=== PATIENT | female | born 1990 | race Caucasian/White ===

== ENCOUNTER 2018-11-11 19:19 | Outpatient (CLI) | payer MEDICAID ==
[~2018-11-11] VITALS: Ht 167.6 cm; Wt 95.2 kg
[2018-11-11 19:29] VITALS: Ht 167.6 cm; Wt 95.2 kg
[2018-11-11 19:31] VITALS: BP 110/65; PULSE 83; RESP 19
[2018-11-11] MEDS ORDERED: NOVO7030 SC ×2 (20:16)
[2018-11-11] MEDS ORDERED: NOVO3I SC (20:25)
--- NOTE | 2018-11-11 21:41 | TRIAGE ---
OB Triage Datetime Report Generated by CPN: 11/11/2018 21:41 Datetime: 11/11/2018 21:29 Labor Evaluation Frequency: 0 Monitor Mode: External Pattern: Normal: <= 5 Contractions in 10 Minutes Heart Rate FHR Baseline Rate: 135 Monitor Mode: External US Variability: Moderate 6-25 bpm Accelerations: 15X15 Decelerations: None Datetime: 11/11/2018 21:00 Labor Evaluation Frequency: 0 Monitor Mode: External Pattern: Normal: <= 5 Contractions in 10 Minutes Heart Rate FHR Baseline Rate: 135 Monitor Mode: External US Variability: Moderate 6-25 bpm Accelerations: 15X15 Decelerations: None Datetime: 11/11/2018 20:00 Labor Evaluation Frequency: 0 Monitor Mode: External Pattern: Normal: <= 5 Contractions in 10 Minutes Heart Rate FHR Baseline Rate: 135 Monitor Mode: External US Variability: Moderate 6-25 bpm Accelerations: 15X15 Decelerations: None Datetime: 11/11/2018 19:50 Temperature Route: Oral Fall Risk Assessment History of Falling: (0) No Secondary Diagnosis: (0) No Ambulatory Aid: (0) Bedrest/Nurse Assist IV Therapy: (0) No Gait: (0) Normal/Bedrest/Immobile Mental Status: (0) Oriented to Own Ability Fall Score: 0 Fall Risk Score Definition: No Risk: No action required Datetime: 11/11/2018 19:41 Time of Arrival: 11/11/2018 19:04 EGA: 32.0 Arrived By: Ambulatory Arrived From: Home Chief Complaint: left foot/ankle foot swelling Movement: Present Contractions: Denies/Absent Rupture of Membranes: Denies Vaginal Bleeding: None Vaginal Discharge: Denies Recent Sexual Intercouse: Denies Abdominal Trauma: Not Applicable Patient Complaints: Dependent Edema Time Provider Notified: 11/11/2018 19:45 Provider Notified: Dacia Initial Plan: CEFM, DOPPLER STUDY OF LEFT LEG Datetime: 11/11/2018 19:33 Stage of : OB Triage Assessment Type: Triage Maternal Assessment Level of Consciousness: Fully Conscious DTR's/Clonus: DTRs 2+; No Clonus Headache: Frontal Blurred Vision: No Respiratory Effort: Unlabored; Regular Rhythm; Equal Expansion Breath Sounds, Left: Clear and Equal Breath Sounds, Right: Clear and Equal Nausea/Vomiting: Denies RUQ Epigastric Pain: Denies Lower Extremities Edema: Left Lower Extremity Degree: NON PITTING WITH SWELLING NOTED AROUND ANKLE Upper Extremities Edema: None Degree: None Facial Edema: None Bedside Blood Glucose: 103 Pain Assessment Pain Scale: 2 Pain Presence: Constant Pain Type: Ache Pain Location: Head Pain Goal: 0 Pain Relief Measures: Comfort Measures
--- NOTE | 2018-11-11 21:43 | PN ---
Triage Information Date/Time November 11, 2018 Reason for visit: Left foot swelling Weeks of Gestation 32w /Para 3/0 Diabetes: pre-gestational Diabetes management: insulin controlled Hypertention: none Additional information Pt was instructed by her clinic to come in a she reported the swelling of one foot today. There is no associated pain with it and the swelling does not continue up the leg to the calf, knee, or thigh. PMHx: type 2 DM, insulin controlled. PSHx: Ovarian cystectomy 23 cm. NKDA. Objective Vital Signs Date Temp Pulse Resp B/P (MAP) Pulse Ox O2 O2 Flow FiO2 Time Delivery Rate 11/11/18 98.3 83 19 110/65 Room Air 19:31 (80) Heart Rate: 130's Heart Rate Comments Accels to 150 BPM. No decels. Contractions: None Results/Medications Results 24 hrs Laboratory Tests Test 11/11/18 19:36 Bedside Glucose 103 Imaging Results Left leg doppler studies showed no evidence for a DVT. Disposition: Discharge Assessment/Plan A: IUP at 32w. Left foot swelling. P: As doppler studies are negative the pt is ready for d/c. She was told to wear looser socks as she has ankle high ones that are pressing into her skin, possibly adding to the swelling. F/u with her doctor as scheduled. YSABEL ADKINS MD Nov 11, 2018 21:43
== END 2018-11-11 21:35 | disposition home or self-care (01) ==
LOC: OBT 19:19 → L-D 19:20 → OBT 21:35
PROVIDERS: ATTEND Obstetrics & Gynecology
DX: O26.893 Other specified pregnancy related conditions, third trimester (principal); M79.89 Other specified soft tissue disorders; O24.414 Gestational diabetes mellitus in pregnancy, insulin controlled; Z3A.32 32 weeks gestation of pregnancy
CPT/HCPCS: 82962; 93971; Z7500; G0463

== ENCOUNTER 2018-12-03 14:59 | Outpatient (CLI) | payer MEDICAID ==
[~2018-12-03] VITALS: Ht 167.6 cm; Wt 97.4 kg
[~2018-12-03 14:59] MED LIST: NOVO3I SC; NOVO7030 SC
[2018-12-03 16:03] VITALS: Ht 167.6 cm; Wt 97.4 kg
[2018-12-03 16:04] VITALS: BP 103/55; PULSE 69; RESP 18
[2018-12-03] MEDS ORDERED: INSU100C SQ (16:17)
[2018-12-03] MEDS ORDERED: IRON1TAB78 PO (16:20)
[2018-12-03] MEDS ORDERED: FOLI-49 PO (16:20)
--- NOTE | 2018-12-03 18:04 | HP ---
Date/Time of Note Date/Time of Note DATE: 12/03/18 TIME: 17:59 OB - History Hx of Present Free Text/Dictation 28 YO with IUP at 35.1 weeks and EDC 01/06/2019 who is referred by [facility] for antepartum testing due to Type 2 DM. she reports good glycemic contol. She denies contractions, vaginal bleeding, LOF per vagina, headache, visual changes or RUQ pain. she reports good FM. Care: Good Care Ultrasounds: Normal mid trimester US Obstetrical Complications: Other (Tpe 2 DM) Medical Complications: Other (Tpe 2 DM) Past Family/Social History * Past Medical, Surgical, Family and Obstetric Histories reviewed from chart. OB Admission Exam Vital Signs Vital Signs Vital Signs Date Temp Pulse Resp B/P (MAP) Pulse Ox O2 O2 Flow FiO2 Time Delivery Rate 12/03/18 97.5 69 18 103/55 Room Air 16:04 (71) Physical Exam HEENT: WNL Heart: Rhythm Normal Lungs: Clear, Equal Abdomen: WNL Extremities: Normal Reflexes: Normal OB Assessment/Plan Other Assessment: IUP at 35.2 weeks DM Plan: Other (NST, BPP) DMITRIY ESPARZA MD Dec 03, 2018 18:04
--- NOTE | 2018-12-03 19:42 | TRIAGE ---
OB Triage Datetime Report Generated by CPN: 12/03/2018 19:42 Datetime: 12/03/2018 19:11 Stage of : OB Triage Labor Evaluation Frequency: None Monitor Mode: External Resting Tone Roland: Relaxed Heart Rate FHR Baseline Rate: 125 Monitor Mode: External US Variability: Moderate 6-25 bpm Accelerations: 15X15 Decelerations: None Category: Category I Pain Assessment Pain Scale: 0 Pain Presence: None/Denies Pain Type: N/A Pain Relief Measures: Comfort Measures Datetime: 12/03/2018 18:33 Labor Evaluation Frequency: 0 Monitor Mode: External Pattern: Normal: <= 5 Contractions in 10 Minutes Resting Tone Roland: Relaxed Heart Rate FHR Baseline Rate: 125 Monitor Mode: External US Variability: Moderate 6-25 bpm Accelerations: 10X10 Decelerations: None Category: Category I Pain Assessment Pain Scale: 0 Pain Presence: None/Denies Pain Type: N/A Pain Goal: 3 Pain Relief Measures: Comfort Measures Datetime: 12/03/2018 17:57 Stage of : OB Triage Datetime: 12/03/2018 17:22 Stage of : OB Triage Datetime: 12/03/2018 17:20 Labor Evaluation Frequency: 0 Monitor Mode: External Pattern: Normal: <= 5 Contractions in 10 Minutes Resting Tone Roland: Relaxed Heart Rate FHR Baseline Rate: 125 Monitor Mode: External US Variability: Moderate 6-25 bpm Accelerations: 10X10 Decelerations: None Category: Category I Pain Assessment Pain Scale: 0 Pain Presence: None/Denies Pain Type: N/A Pain Goal: 3 Pain Relief Measures: Comfort Measures Datetime: 12/03/2018 16:25 Labor Evaluation Frequency: 0 Monitor Mode: External Resting Tone Roland: Relaxed Heart Rate FHR Baseline Rate: 130 Monitor Mode: External US Variability: Moderate 6-25 bpm Accelerations: 15X15 Decelerations: None Category: Category I Datetime: 12/03/2018 16:23 Stage of : OB Triage Assessment Type: Triage Maternal Assessment Level of Consciousness: Keenly Alert, Responsive DTR's/Clonus: DTRs 2+; No Clonus Headache: Denies Blurred Vision: No Respiratory Effort: Unlabored; Regular Rhythm; Equal Expansion Breath Sounds, Left: Clear and Equal Breath Sounds, Right: Clear and Equal Nausea/Vomiting: Denies RUQ Epigastric Pain: Denies Lower Extremities Edema: Bilateral Lower Extremities Degree: 1+ Upper Extremities Edema: None Facial Edema: None Temperature Route: Oral Fall Risk Assessment History of Falling: (0) No Secondary Diagnosis: (0) No Ambulatory Aid: (0) Bedrest/Nurse Assist IV Therapy: (0) No Gait: (0) Normal/Bedrest/Immobile Mental Status: (0) Oriented to Own Ability Fall Score: 0 Fall Risk Score Definition: No Risk: No action required Pain Assessment Pain Scale: 0 Pain Presence: None/Denies Pain Type: N/A Pain Goal: 0 Datetime: 12/03/2018 16:22 Time of Arrival: 12/03/2018 14:50 EGA: 35.1 Arrived By: Ambulatory Arrived From: Office Chief Complaint: for NST Movement: Present Contractions: Denies/Absent Rupture of Membranes: Denies Vaginal Bleeding: None Vaginal Discharge: Denies Recent Sexual Intercouse: Denies Abdominal Trauma: Not Applicable Patient Complaints: None Time Provider Notified: 12/03/2018 17:22 Provider Notified: Yasharpour Initial Plan: monitor patient Datetime: 11/11/2018 19:50 Fall Score: 0 Fall Risk Score Definition: No Risk: No action required Datetime: 11/11/2018 19:41 EGA: 32.0
== END 2018-12-03 19:25 | disposition home or self-care (01) ==
LOC: OBT 14:59 → L-D 15:00 → OBT 19:25
PROVIDERS: ATTEND Specialist
DX: O24.113 Pre-existing type 2 diabetes mellitus, in pregnancy, third trimester (principal); Z3A.35 35 weeks gestation of pregnancy
CPT/HCPCS: 76818; 82962; Z7500; G0463